=== PATIENT | female | born 1960 | race Caucasian/White ===

== ENCOUNTER → 2017-07-31 | Day surgery (SDC) | payer OTHER ==
[~2017-07-31] VITALS: Ht 165.1 cm; Wt 94.3 kg
[~2017-07-31] MED LIST: *MEPERIDINE 25 MG INJ VIAL PERIprocedural Use ONLY ONE; *ONDANSETRON 4 MG VIAL PERIprocedural Use ONLY ONE; *morphine SULFATE 8 MG/ML PERIprocedure ONLY ONE; ACETAMINOPHEN 1000 MG/100 ML 100 ML IV ONE; ALBU17I; ALBU6.7H INH; ALPR0.5T3 PO; CHLORHEXIDINE GLUCONATE 2 % 1 PACK (2 CLOTHS) TOPICAL PRN; COLA100C5 PO; DEXAMETHASONE SOD PHOS 4 MG/ML VIAL IV ONE; DO NOT ADM ANY ANTICOAGULANT DRUGS PRN; FENO145T2 PO; IBUP-232 PO; KETOROLAC TROMETHAMINE 30 MG/ML (IVP) VIAL IV PUSH ONE; LACTATED RINGER'S 1000 ML INJ 1,000 ML IV ONE; LACTATED RINGER'S 1000 ML IV PRN; LEVO125T4 PO; LIDOCAINE HCL 1% PF 5 ML SYRINGE OTHER ONE; METOPROLOL TARTRATE 25 MG TAB PO PRN; MIDAZOLAM HCL 2 MG/2 ML VIAL IV ONE; ONDANSETRON HCL 4 MG/2 ML VIAL IV PUSH ONE; OXYC1CAP PO; POVIDONE IODINE 5% (ANTISEPSIS KIT) 4 APPLICATIONS EACH NARE PRN; PROPOFOL 200 MG/20 ML AMP IV ONE; PROZ20CA11; PROZ20CA11 PO; SODIUM CHLORID 0.9% 500 ML IV PRN; VITA10004 IM; ceFAZolin 1,000 MG/NS 100 ML IV SCH; ePHEDrine/NS 25 MG/5 ML SYR IV ONE; oxyCODONE/ACETAMINOPHEN 5 MG/325 MG TAB PO SCH
--- NOTE | 2017-07-31 09:35 | PD.OP ---
Operative Report Date of Surgery: Jul 31, 2017 Preoperative Diagnosis: (1) Endocervical polyp (2) Endometrial polyp (3) Postmenopausal bleeding (4) Acute pain in female pelvis Postoperative Diagnosis: (1) Postmenopausal bleeding (2) Acute pain in female pelvis Procedure: 1. hysteroscopy 2. endometrial biopsies with Myosure, D&C Anesthesia: CATHLEEN Surgeon: Tamara Lee Technical Services Manager(s): OR staff Operation and Findings: IVF: 1100 ml LR + IV antibiotic given prior to surgery UO: 30 ml EBL: < 25 ml Findings: 1. abnormally vascular endometrium 2. abnormally thick endometrium at left cornua Specimens: endometrial biopsies + endometrial curettings Complications: none Condition: stable Disposition: PACU Descriptions of the procedure: I discussed the risks, benefits and alternatives of the procedure with the patient. Informed consent was obtained after questions were answered. She was taken to the operating room with her IV running. She was placed in the supine position and was given general anesthesia without difficulties or complications. She was then placed in the dorsal lithotomy position and was prepped and draped in the usual sterile fashion. A bivalve speculum was placed inside the patient's vagina. The anterior aspect of the cervix was grasped with a single tooth tenaculum for manipulation. The cervix was carefully dilated. A hysteroscope was introduced inside the patient' s uterus. The uterine cavity was noted to be vascular and within normal limits except for the area close to the left cornua. The Myosure was used to remove multiple biopsies. A gentle D&C was carefully done. The endometrial biopsies and curettings were sent to pathology. All the instruments were removed from the uterine cavity. The cervix was noted to be hemostatic. All the instruments were removed from the patient's vagina. The patient tolerated the procedure well. She was successfully awaken from general anesthesia and was transferred to PACU in stable condition. Note: I was unable to discuss the surgical findings and results with the patient 's friend since she was not available in the waiting room. However, about one hour after surgery, I discussed surgical findings and surgical procedure with the patient over the phone; her questions were answered; she verbalized understanding and agreement to the procedure done. Tamara Lee MD Jul 31, 2017 09:35
[2017-07-31 15:26] VITALS: BP 109/69; PULSE 74; RESP 18; TEMP 97.9; O2SAT 95
--- NOTE | 2017-07-31 16:21 | EKG ---
Date Performed: 07/31/2017 Time Performed: 09:01:06 PTAGE: 56 years EKG: SINUS BRADYCARDIA NONSPECIFIC T-WAVE ABNORMALITY BORDERLINE ECG PREVIOUS TRACING : 05/08/2007 08.52 Compared to prior tracing no significant change DOCTOR: Yumiko Costa Interpretating Date/Time 07/31/2017 16:20:47
== END | disposition home or self-care (01) ==
LOC: HSDC 08:27
PROVIDERS: ATTEND Obstetrics & Gynecology
DX: N95.0 Postmenopausal bleeding (principal); R10.2 Pelvic and perineal pain; N84.0 Polyp of corpus uteri; R94.31 Abnormal electrocardiogram [ECG] [EKG]
CPT/HCPCS: 00952; 58561; 88305; 93005; J0131; J0690; J1100; J1885; J2175; J2250; J2270; J2405; J3010; J7120